=== PATIENT | female | born 1970 | race Hispanic/Latino ===

== ENCOUNTER 2017-05-01 03:30 | Emergency (ER) | payer MEDICAID ==
[~2017-05-01] VITALS: Ht 160 cm; Wt 75.0 kg
[~2017-05-01 03:30] MED LIST: AUGMENTIN500 MG OR; BACTRIM DS1 TAB PO; CEPHALEXIN500 MG PO; CIPRO500 MG OR; CLARITIN10 M2 OR; KEFLEX500 MG PO; LORTAB 5 OR; LORTAB5 PO; METFORMIN1000 MG OR; METFORMIN1000 MG PO; NAPROSYN500 MG OR; PENICILLN VK250 MG PO; TAM75CAP PO; ZITHROMAX500 MG OR
[2017-05-01] MEDS ORDERED: CLONIDINE0.1 MG PO (03:37)
[2017-05-01] MEDS ORDERED: DILTIAZEM120 MG PO (03:38)
[2017-05-01] MEDS ORDERED: SERTRALINE HCL25 MG PO (03:38)
[2017-05-01 04:30] VITALS: BP 170/65
== END 2017-05-01 04:40 | disposition home or self-care (01) | DRG 563 ==
LOC: ED 03:30
DX: S93.602A Unspecified sprain of left foot, initial encounter (principal); I10 Essential (primary) hypertension; E11.9 Type 2 diabetes mellitus without complications; W10.9XXA Fall (on) (from) unspecified stairs and steps, initial encounter; Y92.009 Unspecified place in unspecified non-institutional (private) residence as the place of occurrence of the external cause

== ENCOUNTER 2018-09-17 03:16 | Emergency (ER) | payer OTHER, MEDICARE, MEDICAID ==
[~2018-09-17] VITALS: Ht 160 cm; Wt 72.0 kg
[~2018-09-17 03:16] MED LIST changes: +CLONIDINE0.1 MG PO; +DILTIAZEM120 MG PO; +SERTRALINE HCL25 MG PO
[2018-09-17 04:34] VITALS: BP 180/102
== END 2018-09-17 04:30 | disposition home or self-care (01) | DRG 563 ==
LOC: ED 03:16
DX: S63.501A Unspecified sprain of right wrist, initial encounter (principal); E11.22 Type 2 diabetes mellitus with diabetic chronic kidney disease; N18.9 Chronic kidney disease, unspecified; W50.2XXA Accidental twist by another person, initial encounter; Y93.F9 Activity, other caregiving; Y92.89 Other specified places as the place of occurrence of the external cause; Y99.0 Civilian activity done for income or pay

== ENCOUNTER → 2018-12-28 | Outpatient (REF) | END | disposition home or self-care (01) | DRG 951 | LOC: PAGE 09:00 | PROVIDERS: ATTEND Nurse Practitioner Family | DX: Z02.1 Encounter for pre-employment examination (principal); Z23 Encounter for immunization ==

== ENCOUNTER 2019-07-14 12:58 | Emergency (ER) | payer MEDICARE, MEDICAID ==
[~2019-07-14] VITALS: Ht 160 cm; Wt 80.1 kg
[2019-07-14 15:01] LABS: HEMOGLOBIN 11.1 g/dl (12.0-16.0); IMMATURE GRANULOCYTES 0.6 % (0.0-5.0); MEAN CORPUSCULAR HGB 30.9 pG CALC (26.0-32.0); MEAN CORPUSCULAR HGB CONC 31.8 g/L CALC (32.0-36.0); NEUT# 8.68 thou/uL (2.00-7.15); RED BLOOD COUNT 3.59 mill/uL (4.20-5.60); RED CELL DISTRI WIDTH 12.8 % (11.5-15.5)
[2019-07-14 15:04] LABS: HEMATOCRIT 34.9 % (37.0-47.0); MEAN CELL VOLUME 97.2 fL CALC (80.0-100.0)
[2019-07-14 15:21] LABS: POTASSIUM 4.2 mmol/l (3.5-5.1)
[2019-07-14 15:25] LABS: ALBUMIN 4.4 g/dL (3.2-5.0); BILIRUBIN, TOTAL 0.5 mg/dL (0.0-1.4)
[2019-07-14 17:05] VITALS: BP 145/70
== END 2019-07-14 17:19 | disposition left against medical advice (07) ==
LOC: ED 12:58
DX: T63.461A Toxic effect of venom of wasps, accidental (unintentional), initial encounter (principal); T78.2XXA Anaphylactic shock, unspecified, initial encounter; I48.92 Unspecified atrial flutter; R21 Rash and other nonspecific skin eruption; R09.81 Nasal congestion; Y92.009 Unspecified place in unspecified non-institutional (private) residence as the place of occurrence of the external cause; Z91.19 Patient's noncompliance with other medical treatment and regimen

== ENCOUNTER 2019-10-17 07:36 | Emergency (ER) | payer MEDICARE, OTHER ==
[~2019-10-17] VITALS: Ht 160 cm; Wt 73.0 kg
[2019-10-17] MEDS ORDERED: NORVASC5 M1 PO (07:49)
[2019-10-17] MEDS ORDERED: LANTUS100 UNIT/M SC (07:51)
[2019-10-17] MEDS ORDERED: NOVOLOG100 UNIT/M SC (07:51)
[2019-10-17] MEDS ORDERED: KEFLEX500 MG PO (08:27)
[2019-10-17] MEDS ORDERED: CLEOCIN300 MG PO (08:27)
[2019-10-17 08:40] VITALS: BP 190/94
== END 2019-10-17 08:40 | disposition home or self-care (01) ==
LOC: ED 07:36
DX: L02.213 Cutaneous abscess of chest wall (principal); E11.9 Type 2 diabetes mellitus without complications; Z79.4 Long term (current) use of insulin

== ENCOUNTER 2020-01-03 | Emergency (ER) | payer OTHER, MEDICARE ==
[~2020-01-03] MED LIST changes: +CLEOCIN300 MG PO; +LANTUS100 UNIT/M SC; +NORVASC5 M1 PO; +NOVOLOG100 UNIT/M SC
[2020-01-03] MEDS ORDERED: CARVEDILOL25 MG PO (03:53)
== END 2020-01-03 05:01 | disposition home or self-care (01) | DRG 562 ==
PROC: 2W3KXYZ Immobilization of Left Finger using Other Device (ICD-10-PCS; principal; 2020-01-03)
DX: S63.611A Unspecified sprain of left index finger, initial encounter (principal); N18.6 End stage renal disease; E11.22 Type 2 diabetes mellitus with diabetic chronic kidney disease; Y04.8XXA Assault by other bodily force, initial encounter; Y92.129 Unspecified place in nursing home as the place of occurrence of the external cause; Y99.0 Civilian activity done for income or pay; Z79.4 Long term (current) use of insulin; Z99.2 Dependence on renal dialysis